=== PATIENT | male | born 1990 | race Caucasian/White ===

== ENCOUNTER 2020-08-08 14:27 | Emergency (ER) | payer MEDICARE, OTHER ==
[2020-08-08 15:07] LABS: HEMOGLOBIN 14.8 gm/dl (14.0-17.5); RED BLOOD COUNT 4.81 M/UL (4.20-5.50); WHITE BLOOD COUNT 10.1 K/UL (4.5-11.0)
[2020-08-08 15:37] LABS: BUN/CREATININE RATIO 7 (0-10)
[2020-08-08] MEDS ORDERED: K-DUR TAB 20 M20 MEQ PO (17:20)
== END 2020-08-08 17:43 | disposition home or self-care (01) ==
LOC: ER1 14:27
PROVIDERS: Physician Assistant
DX: G43.909 Migraine, unspecified, not intractable, without status migrainosus (principal); E87.6 Hypokalemia; Z79.899 Other long term (current) drug therapy; Z20.822 Contact with and (suspected) exposure to COVID-19
CPT/HCPCS: 80053; 85025; 96365; 96375; 99284; J1200; J1885; J2765; J3480; J7030; U0002

== ENCOUNTER 2020-09-21 14:00 | Emergency (ER) | payer MEDICARE, OTHER ==
[~2020-09-21 14:00] MED LIST: K-DUR TAB 20 M20 MEQ PO
[2020-09-21 15:42] LABS: HEMOGLOBIN 12.9 gm/dl (14.0-17.5); RED BLOOD COUNT 4.37 M/UL (4.20-5.50); WHITE BLOOD COUNT 9.6 K/UL (4.5-11.0)
[2020-09-21 16:05] LABS: BUN/CREATININE RATIO 11 (0-10)
[2020-09-21] MEDS ORDERED: KLOR-CON M1010 MEQ PO (18:19)
== END 2020-09-21 18:34 | disposition home or self-care (01) ==
LOC: ER1 14:00
PROVIDERS: Student in an Organized Health Care Education/Training Program
DX: R51.9 Headache, unspecified (principal); E87.6 Hypokalemia; Z20.822 Contact with and (suspected) exposure to COVID-19; Z79.899 Other long term (current) drug therapy
CPT/HCPCS: 0240U; 36415; 80053; 82550; 82553; 83874; 84484; 85025; 93005; 96365; 96375; 99284; J1885; J2765; J3475; J7030

== ENCOUNTER → 2021-01-21 | Outpatient (CLI) | payer MEDICARE, OTHER ==
[~2021-01-21] MED LIST changes: +KLOR-CON M1010 MEQ PO
== END ==
LOC: CT 01-07 14:30
DX: K76.0 Fatty (change of) liver, not elsewhere classified (principal); E87.6 Hypokalemia; R74.01 Elevation of levels of liver transaminase levels
CPT/HCPCS: Q9967